=== PATIENT | male | born 1995 | race Two or more races ===

== ENCOUNTER 2022-10-13 12:47 | Emergency (ER) | payer BC ==
[~2022-10-13] VITALS: Ht 175.3 cm; Wt 72.6 kg
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
--- NOTE | 2022-10-13 14:27 | NUR ---
Patient discharged to home in stable condition. Written and verbal after care instructions given. Patient verbalizes understanding of instruction.
[2022-10-13 14:28] VITALS: BP 132/80
== END 2022-10-13 14:28 | disposition home or self-care (01) ==
LOC: ER 12:49
DX: S30.22XA Contusion of scrotum and testes, initial encounter (principal); W20.8XXA Other cause of strike by thrown, projected or falling object, initial encounter; Y93.66 Activity, soccer; Y92.89 Other specified places as the place of occurrence of the external cause; Y99.8 Other external cause status
CPT/HCPCS: 76870-TC